=== PATIENT | male | born 1950 | race African-American/Black ===

== ENCOUNTER 2018-12-02 10:25 | Inpatient (IN) | payer MEDICARE, OTHER ==
[~2018-12-02] VITALS: Ht 185.4 cm; Wt 74.8 kg
[2018-12-02 10:37] VITALS: BP 121/63
--- NOTE | 2018-12-02 10:37 | NUR ---
ED Nurse Note: Patient brought in to ER from home due to chest pain/upper abdominal pain that radiates to Lt shoulder and arm and started 1 hour ago at home when he was walking out of the bathroom. calm and cooperative. skin clean and intact. ambulatory but weak at this moment. pt is in gown and on director physical. no acute distress noted at this time. pt reported his pain improved to 5/10.
--- NOTE | 2018-12-02 10:49 | NUR ---
ED Nurse Note: x-ray at bedside.
[2018-12-02 11:02] LABS: APPEARANCE,URINE CLEAR; BILIRUBIN, URINE NEGATIVE (NEGATIVE); COLOR,URINE PALE YELLOW; GLUCOSE, URINE (UA) NEGATIVE (NEGATIVE); KETONES,URINE NEGATIVE (NEGATIVE); LEUKOCYTE ESTERASE ,URINE NEGATIVE (NEGATIVE); NITRITE,URINE NEGATIVE (NEGATIVE); PH,URINE 8 (4.5-8.0); PROTEIN,URINE NEGATIVE (NEGATIVE); UROBILINOGEN,URINE NORMAL MG/DL (0.0-1.0)
[2018-12-02 11:10] LABS: BASOPHILS % (AUTO) 2.2 % (0.0-2.0); EOSINOPHILS % (AUTO) 6.1 % (0.0-3.0); HEMATOCRIT 49.2 % (42.0-52.0); HEMOGLOBIN 16.4 G/DL (14.2-18.0); LYMPHOCYTES % (AUTO) 45.6 % (20.0-45.0); MEAN CORPUSCULAR VOLUME 89 FL (80-99); MONOCYTES % (AUTO) 8.5 % (1.0-10.0); NEUTROPHILS % (AUTO) 37.8 % (45.0-75.0); PLATELET COUNT 151 K/UL (150-450); RED BLOOD COUNT 5.51 M/UL (4.70-6.10); RED CELL DISTRIBUTION WIDTH 12.5 % (11.6-14.8); WHITE BLOOD COUNT 4.2 K/UL (4.8-10.8)
[2018-12-02 11:26] LABS: ANION GAP 9 mmol/L (5-15); BLOOD UREA NITROGEN 12 mg/dL (7-18); CALCIUM 9.9 MG/DL (8.5-10.1); CARBON DIOXIDE 28 MMOL/L (21-32); CHLORIDE 101 MMOL/L (98-107); CREATININE 0.9 MG/DL (0.55-1.30); POTASSIUM 3.6 MMOL/L (3.5-5.1); SODIUM 138 MMOL/L (136-145)
--- NOTE | 2018-12-02 11:27 | Diagnostic Imaging Report ---
Indication: Chest pain Comparison: None A single view chest radiograph was obtained. Findings: Cardiomediastinal appearance is within normal limits for age. The lungs are clear. Pulmonary vascularity is appropriate. The diaphragmatic contour is smooth and costophrenic angles are sharp. No pleural effusions are identified. The bones are unremarkable. Impression: No acute findings
[2018-12-02 11:31] LABS: ALANINE AMINOTRANSFERASE 32 U/L (12-78); ALBUMIN 3.8 G/DL (3.4-5.0); ALBUMIN/GLOBULIN RATIO 0.8 (1.0-2.7); ALKALINE PHOSPHATASE 197 U/L (46-116); ASPARTATE AMINO TRANSFERASE 33 U/L (15-37); BILIRUBIN,TOTAL 0.5 MG/DL (0.2-1.0)
--- NOTE | 2018-12-02 13:05 | NUR ---
ED Nurse Note: pt ambulated to bathroom with steady gait.
[2018-12-02] MEDS ORDERED: PROTONIX40 MG ORAL (13:43)
[2018-12-02] MEDS ORDERED: FLOMAX0.4 MG ORAL (13:43)
--- NOTE | 2018-12-02 13:52 | Emergency Room Report ---
History of Present Illness General Chief Complaint: Chest Pain Source: Patient Present Illness HPI 68-year-old male presents ED complaining of chest pain. Brought in by EMS. States symptoms started this morning. Left-sided, 6 out of 10, dull, nonradiating. With shortness of breath. Comes and goes. Denies any symptoms at this time. History of acid reflux and took his Mylanta but states it did not help. States he is borderline diabetic. Denies alcohol or drug use. No other aggravating relieving factors. Denies any other associated symptoms Allergies: Coded Allergies: No Known Allergies (Unverified , 12/02/18) Patient History Past Medical History: none Past Surgical History: none Pertinent Family History: none Social History: Denies: smoking, alcohol use, drug use Immunizations: UTD Reviewed Nursing Documentation: PMH: Agreed; PSxH: Agreed Nursing Documentation-PMH Hx Cardiac Problems: No - GERD Review of Systems All Other Systems: negative except mentioned in HPI Physical Exam Vital Signs Date Time Temp Pulse Resp B/P (MAP) Pulse Ox O2 Delivery O2 Flow Rate FiO2 12/02/18 10:19 98.1 86 18 129/78 (95) 100 Room Air Sp02 EP Interpretation: reviewed, normal General Appearance: no apparent distress, alert, GCS 15, non-toxic Head: normocephalic, atraumatic Eyes: bilateral eye normal inspection, bilateral eye PERRL ENT: hearing grossly normal, normal pharynx, no angioedema, normal voice Neck: full range of motion, supple/symm/no masses Respiratory: chest non-tender, lungs clear, normal breath sounds, speaking full sentences Cardiovascular #1: regular rate, rhythm, no edema Cardiovascular #2: 2+ carotid (R), 2+ carotid (L), 2+ radial (R), 2+ radial (L) , 2+ dorsalis pedis (R), 2+ dorsalis pedis (L) Gastrointestinal: normal bowel sounds, non tender, soft, non-distended, no guarding, no rebound Rectal: deferred Genitourinary: normal inspection, no CVA tenderness Musculoskeletal: back normal, gait/station normal, normal range of motion, non- tender Neurologic: alert, oriented x3, responsive, motor strength/tone normal, sensory intact, speech normal Psychiatric: judgement/insight normal, memory normal, mood/affect normal, no suicidal/homicidal ideation Reflexes: 3+ bicep (R), 3+ bicep (L), 3+ tricep (R), 3+ tricep (L), 3+ knee (R) , 3+ knee (L) Lymphatic: no adenopathy Medical Decision Making Diagnostic Impression: Primary Impression: ACS (acute coronary syndrome) ER Course Hospital Course 68-year-old male presents ED complaining of chest pain, SOB Differential diagnoses include: [place]/unstable angina, contusion, muscle strain, PTX, rib fracture Clinical course Patient placed on stretcher. on security monitor. After initial history and physical I ordered labs, EKG, chest x-ray labs reviewed- no leukocytosis, hb/hct stable, electrolytes ok, trop negative EKG - NSR, no acute ischemic changes interpreted by me Chest x-ray- no acute process Presentation and age I believe patient would benefit from observation admission. given aspirin Case discussed with Dr. Arroyo and he agreed to accept the patient to his service for further care and support I. I feel this is a highly complex case requiring extensive working including EKG/Rhythm strip, Xray/CT/US, Blood/urine lab work, repeat exams while in ED, and administration of strong opiates/narcotics for pain control, admission to hospital or close patient follow up. Diagnosis - ACS admitted to telemetry/OBS in serious condition Labs Test 12/02/18 10:50 White Blood Count 4.2 K/UL (4.8-10.8) Red Blood Count 5.51 M/UL (4.70-6.10) Hemoglobin 16.4 G/DL (14.2-18.0) Hematocrit 49.2 % (42.0-52.0) Mean Corpuscular Volume 89 FL (80-99) Mean Corpuscular Hemoglobin 29.7 PG (27.0-31.0) Mean Corpuscular Hemoglobin Concent 33.3 G/DL (32.0-36.0) Red Cell Distribution Width 12.5 % (11.6-14.8) Platelet Count 151 K/UL (150-450) Mean Platelet Volume 12.9 FL (6.5-10.1) Neutrophils (%) (Auto) 37.8 % (45.0-75.0) Lymphocytes (%) (Auto) 45.6 % (20.0-45.0) Monocytes (%) (Auto) 8.5 % (1.0-10.0) Eosinophils (%) (Auto) 6.1 % (0.0-3.0) Basophils (%) (Auto) 2.2 % (0.0-2.0) Urine Color Pale yellow Urine Appearance Clear Urine pH 8 (4.5-8.0) Urine Specific [place] 1.010 (1.005-1.035) Urine Protein Negative (NEGATIVE) Urine Glucose (UA) Negative (NEGATIVE) Urine Ketones Negative (NEGATIVE) Urine Blood Negative (NEGATIVE) Urine Nitrite Negative (NEGATIVE) Urine Bilirubin Negative (NEGATIVE) Urine Urobilinogen Normal MG/DL (0.0-1.0) Urine Leukocyte Esterase Negative (NEGATIVE) Sodium Level 138 MMOL/L (136-145) Potassium Level 3.6 MMOL/L (3.5-5.1) Chloride Level 101 MMOL/L (98-107) Carbon Dioxide Level 28 MMOL/L (21-32) Anion Gap 9 mmol/L (5-15) Blood Urea Nitrogen 12 mg/dL (7-18) Creatinine 0.9 MG/DL (0.55-1.30) Estimat Glomerular Filtration Rate > 60 mL/min (>60) Glucose Level 87 MG/DL (74-106) Calcium Level 9.9 MG/DL (8.5-10.1) Total Bilirubin 0.5 MG/DL (0.2-1.0) Aspartate Amino Transf (AST/SGOT) 33 U/L (15-37) Alanine Aminotransferase (ALT/SGPT) 32 U/L (12-78) Alkaline Phosphatase 197 U/L (46-116) Troponin I 0.000 ng/mL (0.000-0.056) Total Protein 8.5 G/DL (6.4-8.2) Albumin 3.8 G/DL (3.4-5.0) Globulin 4.7 g/dL Albumin/Globulin Ratio 0.8 (1.0-2.7) Lipase 136 U/L (73-393) EKG Diagnostic Results Rate: normal Rhythm: NSR ST Segments: no acute changes ASA given to the pt in ED: Yes Rhythm Strip Diag. Results EP Interpretation: yes Rhythm: NSR, no PVC's, no ectopy Chest X-Ray Diagnostic Results Chest X-Ray Diagnostic Results : Chest X-Ray Ordered: Yes # of Views/Limited/Complete: 1 View Indication: Chest Pain EP Interpretation: Yes Interpretation: no consolidation, no effusion, no pneumothorax, no acute cardiopulmonary disease Impression: No acute disease Electronically Signed by: Electronically signed by Phi Mckenzie MD Last Vital Signs Date Time Temp Pulse Resp B/P (MAP) Pulse Ox O2 Delivery O2 Flow Rate FiO2 12/02/18 10:37 98.1 68 18 121/63 100 Room Air Status: improved Disposition: ADMITTED INPATIENT Condition: Serious Referrals: NON PHYSICIAN (PCP) Phi Mckenzie MD Dec 02, 2018 13:52
--- NOTE | 2018-12-02 13:52 | NUR ---
ED Nurse Note: report given to SAJI Arndt
--- NOTE | 2018-12-02 14:02 | NUR ---
ED Nurse Note: pt left unit with 1 assembly technician and i RN in stable condition.
[2018-12-02 14:15] VITALS: BP 138/78
--- NOTE | 2018-12-02 14:20 | NUR ---
NURSE NOTES: Patient came via [facility] from ER, Hair/DANIEL, received report from ER nurse. Patient is awake and alert, Able to answer questions. grease man placed, reading Normal sinus rhythm. Skin is intact, IV on Right AC, patent, no infiltration or bleeding noted. Able to make needs known. Denies pain at this time. Lungs are clear, No acute distress/ SOB noted at this time. Belonging check done and signed. Bed in low position and locked. Call light within reach. Will continue plan of care.
--- NOTE | 2018-12-02 14:26 | History and Physical ---
History of Present Illness General Date patient seen: Dec 02, 2018 Reason for Hospitalization: Chest Pain Present Illness HPI 68 year old pleasant male presented to the ED with chest pain, 6/10, left sided , radiating to his back, dull and heavy, associated with dizziness, gaping for air. No diaphoresis, no syncope or lightheadedness. Lasted for over an house. Earlier today he felt like he had reflux and took Mylanta. He has had chest pains similar to this in the past. Sees a recruiting operations consultant at [facility]. Was wearing a cardiac monitoring device for a week and recently turned it in. Past medical and surgical history: Borderline DM, GERD, Pagets disease, bph Family history: no family history of heart disease Social history: Denies smoking, denies alcohol or illicit drug use Allergies: Coded Allergies: No Known Allergies (Unverified , 12/02/18) Medication History Scheduled Pantoprazole* (Protonix*), 40 MG ORAL DAILY, (Reported) Tamsulosin HCl (Flomax), 0.4 MG ORAL DAILY, (Reported) Patient History Healthcare decision maker Resuscitation status Advanced Directive on File Review of Systems Constitutional: Denies: no symptoms, see HPI, chills, sweats, fever, malaise, weakness, other Eye: Denies: no symptoms, see HPI, eye pain, blurred vision, tearing, double vision, nose pain, nose congestion, acuity changes, discharge, other ENT: Denies: no symptoms, see HPI, ear pain, ear discharge, nose pain, nose congestion, throat pain, throat swelling, mouth pain, hearing loss, nasal discharge, other Respiratory: Reports: shortness of breath; Denies: no symptoms, see HPI, cough , orthopnea, stridor, wheezing, RUSS, sputum, other Cardiovascular: Reports: chest pain; Denies: no symptoms, see HPI, edema, palpitations, syncope, PND, other Gastrointestinal: Denies: no symptoms, see HPI, abdominal pain, constipation, diarrhea, nausea, vomiting, melena, hematemesis, other Genitourinary: Denies: no symptoms, see HPI, discharge, dysuria, frequency, hematuria, pain, retention, incontinence, urgency, vag bleed/dc, other Musculoskeletal: Denies: no symptoms, see HPI, back pain, gout, joint pain, joint swelling, muscle pain, muscle stiffness, other Skin: Denies: no symptoms, see HPI, rash, change in color, change in hair/nails , dryness, lesions, other Psychiatric: Denies: no symptoms, see HPI, prior hx, anxiety, depressed feelings, emotional problems, SI, HI, hallucinations, other Neurological: Denies: no symptoms, see HPI, headache, numbness, paresthesia, seizure, tingling, tremors, focal weakness, syncope, dizziness, other Endocrine: Denies: no symptoms, see HPI, excessive sweating, flushing, intolerance to temperature, increased thirst, increased urine, unexplained weight loss, other Hematologic/Lymphatic: Denies: no symptoms, see HPI, anemia, blood clots, easy bleeding, easy bruising, swollen glands, diathesis, other Physical Exam Physical Exam Narrative General Appearance: no apparent distress, non-toxic Head: normocephalic, atraumatic Eyes: bilateral eye normal inspection, bilateral eye PERRL ENT: hearing grossly normal, normal pharynx, no angioedema, normal voice Neck: full range of motion, supple/symm/no masses, no JVD Respiratory: chest non-tender, lungs clear, normal breath sounds, speaking full sentences Cardiovascular: regular rate, rhythm, no m/r/g, no edema Gastrointestinal: normal bowel sounds, non tender, soft, non-distended, no guarding, no rebound Musculoskeletal: back normal, gait/station normal, normal range of motion Neurologic: alert, oriented x3, responsive, motor strength/tone normal, sensory intact, speech normal Psychiatric: mood/affect normal, Skin: No ulcers Last 24 Hour Vital Signs Date Time Temp Pulse Resp B/P (MAP) Pulse Ox O2 Delivery O2 Flow Rate FiO2 12/02/18 14:02 98.3 69 18 120/82 100 Room Air 12/02/18 10:37 98.1 68 18 121/63 100 Room Air 12/02/18 10:37 86 18 Room Air 12/02/18 10:19 98.1 86 18 129/78 (95) 100 Room Air Laboratory Tests Test 12/02/18 10:50 White Blood Count 4.2 K/UL (4.8-10.8) L Red Blood Count 5.51 M/UL (4.70-6.10) Hemoglobin 16.4 G/DL (14.2-18.0) Hematocrit 49.2 % (42.0-52.0) Mean Corpuscular Volume 89 FL (80-99) Mean Corpuscular Hemoglobin 29.7 PG (27.0-31.0) Mean Corpuscular Hemoglobin Concent 33.3 G/DL (32.0-36.0) Red Cell Distribution Width 12.5 % (11.6-14.8) Platelet Count 151 K/UL (150-450) Mean Platelet Volume 12.9 FL (6.5-10.1) H Neutrophils (%) (Auto) 37.8 % (45.0-75.0) L Lymphocytes (%) (Auto) 45.6 % (20.0-45.0) H Monocytes (%) (Auto) 8.5 % (1.0-10.0) Eosinophils (%) (Auto) 6.1 % (0.0-3.0) H Basophils (%) (Auto) 2.2 % (0.0-2.0) H Urine Color Pale yellow Urine Appearance Clear Urine pH 8 (4.5-8.0) Urine Specific [place] 1.010 (1.005-1.035) Urine Protein Negative (NEGATIVE) Urine Glucose (UA) Negative (NEGATIVE) Urine Ketones Negative (NEGATIVE) Urine Blood Negative (NEGATIVE) Urine Nitrite Negative (NEGATIVE) Urine Bilirubin Negative (NEGATIVE) Urine Urobilinogen Normal MG/DL (0.0-1.0) Urine Leukocyte Esterase Negative (NEGATIVE) Sodium Level 138 MMOL/L (136-145) Potassium Level 3.6 MMOL/L (3.5-5.1) Chloride Level 101 MMOL/L (98-107) Carbon Dioxide Level 28 MMOL/L (21-32) Anion Gap 9 mmol/L (5-15) Blood Urea Nitrogen 12 mg/dL (7-18) Creatinine 0.9 MG/DL (0.55-1.30) Estimat Glomerular Filtration Rate > 60 mL/min (>60) Glucose Level 87 MG/DL (74-106) Calcium Level 9.9 MG/DL (8.5-10.1) Total Bilirubin 0.5 MG/DL (0.2-1.0) Aspartate Amino Transf (AST/SGOT) 33 U/L (15-37) Alanine Aminotransferase (ALT/SGPT) 32 U/L (12-78) Alkaline Phosphatase 197 U/L (46-116) H Troponin I 0.000 ng/mL (0.000-0.056) Total Protein 8.5 G/DL (6.4-8.2) H Albumin 3.8 G/DL (3.4-5.0) Globulin 4.7 g/dL Albumin/Globulin Ratio 0.8 (1.0-2.7) L Lipase 136 U/L (73-393) Height (Feet): 5 Height (Inches): 10.00 Weight (Pounds): 175 Assessment/Plan Status: stable Assessment/Plan: 68 year old male with chest pain likely atypical, will be place don observation to rule out ACS -Cardiology consult Dr. Lewis -Telemetry -Serial EKG and troponin -check Echo -Check HbA1c -Continue Tamsulosin for BPH -Famotidine BID for GERD -plan of care d/w with patient I spent 70 minutes on this encounter. >50% spent on counseling and care coordination Time of this note may not reflect time of encounter Ej Menard M.D. Dec 02, 2018 14:26
--- NOTE | 2018-12-02 14:31 | Cardiac Electrophysiology PN ---
Subjective Subjective [id number] Objective Last 24 Hour Vital Signs Date Time Temp Pulse Resp B/P (MAP) Pulse Ox O2 Delivery O2 Flow Rate FiO2 12/02/18 14:02 98.3 69 18 120/82 100 Room Air 12/02/18 10:37 98.1 68 18 121/63 100 Room Air 12/02/18 10:37 86 18 Room Air 12/02/18 10:19 98.1 86 18 129/78 (95) 100 Room Air Laboratory Tests Test 12/02/18 10:50 White Blood Count 4.2 K/UL (4.8-10.8) L Red Blood Count 5.51 M/UL (4.70-6.10) Hemoglobin 16.4 G/DL (14.2-18.0) Hematocrit 49.2 % (42.0-52.0) Mean Corpuscular Volume 89 FL (80-99) Mean Corpuscular Hemoglobin 29.7 PG (27.0-31.0) Mean Corpuscular Hemoglobin Concent 33.3 G/DL (32.0-36.0) Red Cell Distribution Width 12.5 % (11.6-14.8) Platelet Count 151 K/UL (150-450) Mean Platelet Volume 12.9 FL (6.5-10.1) H Neutrophils (%) (Auto) 37.8 % (45.0-75.0) L Lymphocytes (%) (Auto) 45.6 % (20.0-45.0) H Monocytes (%) (Auto) 8.5 % (1.0-10.0) Eosinophils (%) (Auto) 6.1 % (0.0-3.0) H Basophils (%) (Auto) 2.2 % (0.0-2.0) H Urine Color Pale yellow Urine Appearance Clear Urine pH 8 (4.5-8.0) Urine Specific [place] 1.010 (1.005-1.035) Urine Protein Negative (NEGATIVE) Urine Glucose (UA) Negative (NEGATIVE) Urine Ketones Negative (NEGATIVE) Urine Blood Negative (NEGATIVE) Urine Nitrite Negative (NEGATIVE) Urine Bilirubin Negative (NEGATIVE) Urine Urobilinogen Normal MG/DL (0.0-1.0) Urine Leukocyte Esterase Negative (NEGATIVE) Sodium Level 138 MMOL/L (136-145) Potassium Level 3.6 MMOL/L (3.5-5.1) Chloride Level 101 MMOL/L (98-107) Carbon Dioxide Level 28 MMOL/L (21-32) Anion Gap 9 mmol/L (5-15) Blood Urea Nitrogen 12 mg/dL (7-18) Creatinine 0.9 MG/DL (0.55-1.30) Estimat Glomerular Filtration Rate > 60 mL/min (>60) Glucose Level 87 MG/DL (74-106) Calcium Level 9.9 MG/DL (8.5-10.1) Total Bilirubin 0.5 MG/DL (0.2-1.0) Aspartate Amino Transf (AST/SGOT) 33 U/L (15-37) Alanine Aminotransferase (ALT/SGPT) 32 U/L (12-78) Alkaline Phosphatase 197 U/L (46-116) H Troponin I 0.000 ng/mL (0.000-0.056) Total Protein 8.5 G/DL (6.4-8.2) H Albumin 3.8 G/DL (3.4-5.0) Globulin 4.7 g/dL Albumin/Globulin Ratio 0.8 (1.0-2.7) L Lipase 136 U/L (73-393) Je Lewis MD Dec 02, 2018 14:31
[2018-12-02] MEDS ORDERED: LORazepam 1mg tab ORAL PRN (14:45)
[2018-12-02] MEDS ORDERED: Milk of Magnesia 30ml Ud ORAL PRN (14:45)
[2018-12-02] MEDS ORDERED: Albuterol/Ipratropium 3ml neb HHN PRN (14:45)
[2018-12-02] MEDS ORDERED: HYDROmorphone 1mg/ml Carpuject IVP PRN (14:45)
[2018-12-02] MEDS ORDERED: Miralax 17gm pkt ORAL PRN (14:45)
[2018-12-02 16:00] VITALS: BP 116/66
[2018-12-02] MEDS: NovoLOG Insulin Flexpen SUBQ SCH ×2 (16:30→21:00)
--- NOTE | 2018-12-02 17:15 | Consultation ---
DATE OF CONSULTATION: 12/02/2018 CARDIOLOGY CONSULTATION CONSULTING PHYSICIAN: Je Lewis M.D. REFERRING PHYSICIAN: 1. Jersey Marin M.D. 2. Sloan Arroyo M.D. REASON FOR CONSULTATION: Chest pain. HISTORY OF PRESENT ILLNESS: The patient is a 68-year-old gentleman with history of chest pain in the past for which he has had a stress test at [facility] that was apparently negative about a year ago. The patient presented to the emergency room complaining of left-sided 6/10, dull, nonradiating chest x-ray associated with shortness of breath that has been coming and going. The patient did not have any syncope, presyncope, nausea, vomiting, or diaphoresis. The patient has history of acid reflux, has been taking Mylanta, but states that it did not help. A Cardiology consultation was obtained for further evaluation. His EKG shows sinus rhythm with first-degree AV block with no acute ischemic changes. REVIEW OF SYSTEMS: Negative other than what was mentioned in history of present illness. PAST MEDICAL HISTORY: As mentioned above. FAMILY HISTORY: Noncontributory. SOCIAL HISTORY: He lives at home. Does smoke or drink alcohol. PHYSICAL EXAMINATION: VITAL SIGNS: Show blood pressure of 110/78, pulse 86, respirations 18, temperature is afebrile. HEAD AND NECK: Showed no JVD. LUNGS: Clear. CARDIOVASCULAR: Regular S1 and S2 with no gallop or murmur. ABDOMEN: Soft and nontender. EXTREMITIES: Have no pitting edema. LABORATORY AND DIAGNOSTIC DATA: His labs show white count of 4.2, hemoglobin 16.5, hematocrit of 49, and platelet count of 151. Sodium 138, potassium 3.6, BUN of 12, creatinine 0.9. Troponin is negative. ASSESSMENT AND PLAN: 1. Atypical chest pain in a patient with history of chest pain in the past. The patient states that he could not tolerate a nuclear stress test. I will try to schedule the patient for dobutamine echocardiogram for further evaluation. The patient states it was difficult for him to walk on treadmill in view of his back pain. 2. History of gastroesophageal reflux disease. 3. Benign prostatic hypertrophy for which he was on Flomax. Thank you very much for allowing me to participate in the care of this patient. Please do not hesitate to contact for any questions regarding my evaluation. Sincerely, Je Lewis M.D. DR: Nurys JOB#: [id number] CC:
--- NOTE | 2018-12-02 19:20 | NUR ---
NURSE NOTES: Received patient from SAJI Mejia, patient in stable condition, no distress, vss, AOx4, denies pain at this time, ambulatory, IV site on left AC G20, bed low and locked, side rails upx2, call light within reach, will continue to monitor and reassess.
--- NOTE | 2018-12-02 19:38 | Cardiology Report ---
APPROVED REPORT EXAM: Two-dimensional and M-mode echocardiogram with Doppler and color Doppler. INDICATION Chest Pain M-Mode DIMENSIONS IVSd1.3 (0.7-1.1cm)Left Atrium (MM)3.3 (1.6-4.0cm) LVDd5.4 (3.5-5.6cm)Aortic Root2.8 (2.0-3.7cm) PWd1.4 (0.7-1.1cm)Aortic Cusp Exc.1.7 (1.5-2.0cm) LVDs3.1 (2.5-4.0cm) PWs2.4 cm Normal left ventricular chamber size, systolic function and wall motion. Left ventricular ejection fraction estimated to be 55%. Mild left ventricular hypertrophy. Anterior Echo-free space, may be due to pericardial fat or effusion. All other cardiac chamber sizes are within normal limits. Focal aortic valve sclerosis with adequate cusp excursion. Thickened mitral valve leaflets with normal excursion. Mitral annulus and aortic root calcification. Pulmonic valve not well visualized. Normal tricuspid valve structure. IVC is normal in size with physiological collapse. A color flow and spectral Doppler study was performed and revealed: No aortic regurgitation. Mild mitral regurgitation. Mitral diastolic velocities suggest mild left ventricular diastolic dysfunction (Grade I). Mild tricuspid regurgitation. Tricuspid systolic velocities suggests peak right ventricular systolic pressure of 32 mmHg. Trace pulmonic regurgitation present.
--- NOTE | 2018-12-02 19:51 | NUR ---
HAND-OFF: Report given to Bushra/RN, Patient is awake, Lying on bed, in stable condition. Endorsed plan of care.
[2018-12-02 20:00] VITALS: BP 121/58
[2018-12-02] MEDS: Docusate 100mg cap ORAL SCH (21:23)
[2018-12-02] MEDS: Heparin 5000 units/ml inj SUBQ SCH (21:28)
[2018-12-03] VITALS: BP 151/74
[2018-12-03 04:00] VITALS: BP 115/67
[2018-12-03] MEDS: NovoLOG Insulin Flexpen SUBQ SCH (06:11)
--- NOTE | 2018-12-03 07:31 | NUR ---
NURSE NOTES: Received report from Bushra/RN, Patient is awake, alert, and oriented. Eating breakfast on bed. No acute distress/ SOB, noted. Able to make needs known. Denies pain at this time. IV site patent, intact, no bleeding or infiltration noted. Bed in lowest position and locked, Call light within reach. Will continue plan of care.
--- NOTE | 2018-12-03 07:34 | NUR ---
CARDIOLOGY PT REFUSED THE CARDIAC STRESS TEST
--- NOTE | 2018-12-03 07:51 | NUR ---
HAND-OFF: Report given to SAJI Mejia, patient in stable condition, plan of care endorsed..
[2018-12-03 08:00] VITALS: BP 121/66
--- NOTE | 2018-12-03 08:22 | Discharge Instructions ---
Discharge Instructions Discharge Instructions Diet: 2 GM sodium (low sodium) Resume Normal Activity?: Yes Activity: resume normal activities Follow Up Orders follow up with own traveling buyer on 12/04/2018 For Congestive Heart Failure Reminder Report to your physician any weight gain of 5 pounds or more in one week. Ej Menard M.D. Dec 03, 2018 08:22
--- NOTE | 2018-12-03 08:23 | Discharge Summary ---
Discharge Summary Hospital Course Date of Admission Dec 02, 2018 at 13:14 Date of Discharge Admitting Diagnosis ACUTE CORONARY SYNDROME HPI Iggy Carrera is a 68 year old male who was admitted on Dec 02, 2018 at 13: 14 for Acute Coronary Syndrome Consultations Cardiology: Dr. Lewis Procedures Echocardiogram Hospital Course 68 year old male with chest pain likely atypical, will be place don observation to rule out ACS -Cardiology consult Dr. Lewis appreciated. Patient was offered a stress test and he refused as he had a near experience in the past. He wants to follow up with his own marine electronics repairer on 12/04/18. -Telemetry shows no events. Remained in NSR -Serial EKG and troponin- negative for ACS -Echo: normal left ventricular systolic function. -HbA1c checked 5.8 -Continue Tamsulosin for BPH -Famotidine BID for GERD -plan of care d/w with patient today on exam ,he is well. No acute distress. Lungs cta bl, heart: S1S1 no m/r/ g. I spent 35 minutes on this encounter. >50% spent on counseling and care coordination Discharge Medications Continued Medications: Pantoprazole* (Protonix*) 40 Mg Tablet.dr 40 MG ORAL DAILY, TAB Tamsulosin HCl (Flomax) 0.4 Mg Cap.er.24h 0.4 MG ORAL DAILY, CAP Discharge Condition Upon Discharge: stable Discharge Disposition Patient was discharged to Discharge Diagnoses: (1) Atypical chest pain Discharge Instructions Discharge Instructions Activity: resume normal activities Ej Menard M.D. Dec 03, 2018 08:22
[2018-12-03] MEDS: Docusate 100mg cap ORAL SCH (08:45)
[2018-12-03] MEDS: Heparin 5000 units/ml inj SUBQ SCH (08:48)
[2018-12-03] MEDS ORDERED: Tamsulosin 0.4mg cap ORAL SCH (09:00)
--- NOTE | 2018-12-03 10:30 | NUR ---
NURSE NOTES: Discharge instruction given, patient verbalized understanding. ekg monitor tech and IV removed. Site is clean, and intact, no bleeding or infiltration noted. Belonging check done and signed by patient. Patient is in stable condition, No acute distress or sob noted. Escorted downstairs to Medical record office. Patient stated, he will leave after finishing with medical record.
--- NOTE | 2018-12-04 07:34 | CDS Physician Query ---
Clarification is required for compliance, coding accuracy, and to reflect severity of illness for this patient Dear Dr. Je Lewis MD Date 12/04/2018 [employer]/CDS' Name: Juan M Sorensen Please document the suspected etiology of Chest Pain: [] Aortic dissection [] Acute myocardial infarction [] Acute Coronary Syndrome [] Pericarditis [] Anxiety [] Cancer [] Pneumonia [] Costochondritis [] Pneumothorax [] GERD/Esophagitis [] Pulmonary embolism [] Other: [] Unable to determine Present on Admission: [] Yes [] No [] Clinically Undetermined Physician signature Date Please also document in your Progress Notes and/or Discharge Summary and indicate if the condition was present on admission. LIBBYD
--- NOTE | 2018-12-04 15:25 | Cardiology Report ---
APPROVED REPORT EKG Measurement Heart [id number] Sinus rhythm with 1st degree AV block Otherwise normal ECG
== END 2018-12-03 10:30 | disposition home or self-care (01) | DRG 313 ==
LOC: EDBD 10:25 → EMR 10:50 → EDBEDREQ 13:06 → 2E 13:14 → EDBEDREQ 13:40 → OBSVTOIN 13:47 → 2E 22:43
DX: R07.89 Other chest pain (principal); K21.9 Gastro-esophageal reflux disease without esophagitis; N40.0 Benign prostatic hyperplasia without lower urinary tract symptoms
CPT/HCPCS: 36415; 71045; 80053; 81003; 82962; 83036; 83690; 83880; 84484; 85025; 93005; 93306; 96374; 99285; J1815